=== PATIENT | female | born 1960 | race Caucasian/White ===

== ENCOUNTER 2019-02-03 20:06 | Emergency (ER) | payer SELFPAY ==
[~2019-02-03] VITALS: Wt 59.0 kg
[2019-02-03 20:13] VITALS: BP 159/70; PULSE 96; RESP 18
[2019-02-03] MEDS ORDERED: NAPR-985 PO (21:12)
[2019-02-03] MEDS ORDERED: IBUPROFEN 600 MG TAB PO ONE (21:30)
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
== END 2019-02-03 21:36 | disposition home or self-care (01) ==
LOC: FTE 20:06
DX: M25.462 Effusion, left knee (principal)